=== PATIENT | female | born 1965 | race Caucasian/White ===

== ENCOUNTER 2019-09-19 10:12 | Observation (INO) ==
[2019-09-19] MEDS ORDERED: KETOROLAC TROMETHAMINE 15 MG/ML VIAL IV STA (10:54)
[2019-09-19] MEDS ORDERED: SODIUM CHLORIDE 0.9% 1000ML 1,000 ML IV ONE (10:54)
[2019-09-19] MEDS ORDERED: ONDANSETRON INJ 2 MG/ML 2 ML VIAL IV STA (10:54)
--- NOTE | 2019-09-19 11:03 | Emergency Department Note ---
Impression & Plan Acute calculous cholecystitis ED Provider Note CHIEF COMPLAINT: Right lower abdominal pain, nausea and vomiting HISTORY OF PRESENTING ILLNESS: This is a 54-year-old female who presents to the emergency department by private vehicle with complaint of right lower abdominal pain that started yesterday morning. Patient states she was having diarrhea for the past week, this stopped 2 days ago, and she has not had a bowel movement since. She states since yesterday morning she has been nauseated and has been vomiting up everything that she tries to eat or drink. She has not been able to take any medications for her symptoms. She notes that the pain has been constant, has been getting progressively worse, is in the right lower abdomen and does not radiate, and she rates the pain 6/10. She denies any fevers or chills. She denies chest pain, shortness of breath, back pain, urinary co mplaints, vaginal bleeding or discharge, or unusual rash. She denies any sick contacts or exposures concerning for COVID-19. She notes a history of tubal ligation, but denies any other abdominal surgeries. She last ate solid foods yesterday morning. She is only been doing sips the rest of the day and this morning she had some sips of Sprite around 8 AM, but vomited that back up. REVIEW OF SYSTEMS: A complete 10 point review of systems was reviewed with the patient with pertinent positives and negatives as per history of present illness. All else were negative. PAST MEDICAL HISTORY: Migraine headaches, anxiety, hypertension, history of tubal ligation SOCIAL HISTORY: Lives at home with family, she is a current everyday smoker ALLERGIES: Reviewed in chart and with the patient PHYSICAL EXAM: CONSTITUTIONAL: Pleasant and cooperative. Nontoxic-appearing and in no acute distress. Mildly dehydrated, but otherwise well appearing and well nourished. HEENT: Normocephalic, atraumatic. Pharynx normal. Tacky mucous membranes. NECK: Supple, full active range of motion without discomfort. RESPIRATORY: Clear to auscultation bilaterally with no wheezing, crackles, rhonchi or stridor. Equal expansion bilaterally. CARDIOVASCULAR: Regular rate and rhythm with no murmurs, rubs or gallops. Normal peripheral perfusion. No edema. GASTROINTESTINAL: Tender to palpation in the right upper and lower quadrant,slight guarding, but no rebound tenderness. Abdomen is otherwise nontender, soft and nondistended. Obese abdomen. No palpable masses or HSM. Bowel sounds present in all quadrants. No CVA tenderness bilaterally. MUSCULOSKELETAL: Full range of motion of all joints without discomfort. INTEGUMENTARY: No rash or other significant dermatologic conditions noted. NEUROLOGIC: Alert and oriented X 4 with normal affect. Normal strength and sensation in all 4 extremities. Normal speech. Normal gait observed. ED COURSE AND MEDICAL DECISION MAKING: CC: Patient presenting with complaint of right lower abdominal pain, nausea and vomiting DIFFERENTIAL DIAGNOSIS: Includes, but not limited to appendicitis, mesenteric adenitis, diverticulitis, gastroenteritis, infectious colitis, small bowel obstruction, cholecystitis, cholelithiasis, pancreatitis, dehydration, electrolyte abnormalities, among others. INTERPRETATION OF LABS: Leukocytosis with left shift, no anemia, normal plat elets, no significant electrolyte abnormalities, normal renal function, alk phos mildly elevated, otherwise normal liver enzymes and lipase. UA negative for infection. IMAGING: ABDOMEN AND PELVIS CT WITH IV CONTRAST CT DOSE: 1057.46 mGy.cm HISTORY: Acute right lower quadrant abdominal pain with nausea and vomiting RLQ pain, n/v TECHNIQUE: Multiaxial CT images of the abdomen and pelvis were performed following the IV administration of 94 cc of Optiray 320, A dose lowering technique was utilized adhering to the principles of ALARA. COMPARISON STUDY: CT abdomen and pelvis 04/11/2013 FINDINGS: Mild respiratory motion artifact limits evaluation of the lung bases. Linear subsegmental atelectasis/scarring of the inferior segment lingula. There is a 7 mm subpleural solid nodule of the lateral basal segment left lower lobe, image 66 of series 3 which is unchanged from 2013 and likely benign. No pneumatosis or pneumoperitoneum. The imaged inferior cardiac chambers appear unremarkable. The spleen, pancreas and adrenal glands are unremarkable. Patency of the hepatic and portal veins. Unremarkable liver. Distended stone filled gallbladder with wall thickening and pericholecystic fluid/edema. No choledocholithiasis or biliary ductal dilation identified. No drainable fluid collection. Kidneys and ureters are unremarkable. Partial urinary bladder distention with wall thickening. Unremarkable appearance of the uterus. 2.1 cm indeterminate cystic structure of the left adnexum. Moderate mixed plaque of the abdominal aorta without aneurysm. No adenopathy. Moderate sized hiatal hernia. No bowel obstruction or bowel wall thickening. Colonic diverticulosis without acute diverticulitis. Mild fecal retention. Normal appendix. Soft tissues are unremarkable. Degenerative changes of the spine, pelvis and hips. Large posterior disc osteophyte complex at T11-T12 cause at least mild central canal and moderate left lateral recess narrowing. IMPRESSION: 1. Distended stone filled gallbladder with associated wall thickening and pericholecystic fluid/edema is suggestive of acute calculus cholecystitis. Surgical consultation recommended. 2. No biliary ductal dilation identified. 3. No bowel obstruction or bowel wall thickening. Normal appendix. EKG: Shows normal sinus rhythm with a rate of 72 bpm, normal intervals, no ST or T wave abnormalities, no ectopy, no significant change when compared to previous EKG from 12/01/2018 by my interpretation. MEDICATION RECONCILIATION: I attest that I have personally reviewed the patient's current medication list. INITIAL VITAL SIGNS REVIEW: I reviewed the patient's initial vital signs and interpret them as follows: T: Afebrile; BP: Hypertensive; HR: Mildly tachycardic; RR: Within normal limits; Pulse Ox: Within normal limits on room air. Blood pressure screening: The patient was found to have an elevated blood pressure, which was felt to be situational. MDM SUMMARY: Patient was evaluated at bedside, history and physical exam performed. Patient is alert and oriented, no acute distress, resting calmly in stretcher. She is afebrile and nontoxic-appearing, but does appear to be mildly dehydrated. Abdomen is diffusely tender in the right abdomen with some guarding, but no acute abdomen. Cardiac monitoring: An order was placed for continuous cardiac monitoring. The monitor shows a rate of 91 bpm with normal sinus rhythm. Orders were placed at bedside for labs, UA, IV fluid bolus for hydration, IV Toradol for pain, IV Zofran for nausea, CT abdomen/pelvis with IV contrast to evaluate for abdominal pain. Patient discussed with Dr. Mars, who agrees with my assessment, plan, and disposition. Labs and imaging reviewed as above, labs notable for leukocytosis no other significant abnormalities. CT imaging reviewed as above, noting findings consistent with acute calculus cholecystitis. Of note, liver enzymes and lipase are normal. I spoke on the phone with Janina Bansal PA-C with general surgery, who agrees to evaluate the patient. She feels that they will most likely be able to take the patient to surgery shortly, and requested that we hold off on antibiotics for now. EKG was ordered for preop evaluation per her request. The patient will be admitted under Dr. Lara's service. Patient reassessed multiple times throughout ED stay, she has remained hemodynamically stable and afebrile, her pain is improved after the Toradol and she has not been nauseated after Zofran. She was updated on all results and plan for admission and surgery, all questions were answered to the best of my ability at this time and she verbalized understanding of the plan, to which she was agreeable. The patient was stable at time of admission. The chart was completed utilizing [employer] voice recognition software. Grammatical errors, random word insertions, pronoun errors, and incomplete sentences are an occasional consequence of this system due to software limitations, ambient noise, and hardware issues. Any formal questions or concerns about the content, text, or information contained within the body of this dictation should be directly addressed to the nurse practitioner for clarification. Past Med/Surg History Medical History (Updated 09/19/19 @ 15:04 by Kong Martínez MD) Diverticulitis (Chronic) History of stroke Hypertension Migraines Surgical History History of tubal ligation (Resolved) single, tubal Salpingectomy Social History Preferred Language: Japanese Feels Safe at Home: Yes Smoking Status: Current every day smoker Allergies Allergies Allergy/AdvReac Type Severity Reaction Status Date / Time Penicillins Allergy Unknown UNKNOWN Verified 09/19/19 11:59 Home Meds Home Medications Medication Instructions Recorded Confirmed multivitamin 1 tab PO QAM 09/14/18 09/19/19 amlodipine 5 mg PO DAILY 12/01/18 09/19/19 aspirin [Aspir-81] 81 mg PO QAM 12/01/18 09/19/19 fluticasone propionate 1 spray INTRANASAL QAM 12/01/18 09/19/19 nicotine 1 patch TRANSDERMAL DAILY PRN 12/01/18 09/19/19 nortriptyline 20 mg PO QAM 12/01/18 09/19/19 duloxetine 30 mg PO QAM 09/19/19 09/19/19 duloxetine 60 mg PO QAM 06/08/20 06/08/20 topiramate 100 mg PO QAM 09/19/19 09/19/19 Results & Data (ED) Vital Signs Vital Signs - 24 hr 09/19/19 10:25 09/19/19 11:24 09/19/19 11:25 Temperature 36.8 C Temperature Source Oral Pulse Rate 97 H 84 79 Pulse Rate [Apical] 81 Pulse Rate from SpO2 Sensor 82 Pulse Rhythm [Apical] Regular Pulse Strength [Apical] Respiratory Rate 18 18 Respiratory Effort / Characteristics Non-Labored Spontaneous Non-Labored Respiratory Depth Normal Normal Respiratory Pattern Regular Regular Blood Pressure 125/88 138/101 H Blood Pressure [Right Arm] 138/101 H Blood Pressure Mean 100 121 Blood Pressure Mean [Right Arm] 113 Blood Pressure Position Sitting Blood Pressure Position [Right Arm] Lying Pulse Oximetry 97 95 95 Oxygen Delivery Method Room Air Room Air Room Air Sepsis Recent Fever Within 48 Hours No Sepsis New/Unexplained Change in Mental Status No Sepsis Action Taken by Nursing No Action Required 09/19/19 11:27 09/19/19 11:30 09/19/19 11:31 Temperature Temperature Source Pulse Rate 75 68 72 Pulse Rate [Apical] Pulse Rate from SpO2 Sensor 75 72 72 Pulse Rhythm [Apical] Pulse Strength [Apical] Respiratory Rate 19 18 19 Respiratory Effort / Characteristics Respiratory Depth Respiratory Pattern Blood Pressure 118/79 Blood Pressure [Right Arm] Blood Pressure Mean 86 Blood Pressure Mean [Right Arm] Blood Pressure Position Blood Pressure Position [Right Arm] Pulse Oximetry 94 93 93 Oxygen Delivery Method Sepsis Recent Fever Within 48 Hours Sepsis New/Unexplained Change in Mental Status Sepsis Action Taken by Nursing 09/19/19 12:00 09/19/19 12:01 09/19/19 12:30 Temperature Temperature Source Pulse Rate 73 72 73 Pulse Rate [Apical] Pulse Rate from SpO2 Sensor 73 72 75 Pulse Rhythm [Apical] Pulse Strength [Apical] Respiratory Rate 19 18 19 Respiratory Effort / Characteristics Respiratory Depth Respiratory Pattern Blood Pressure 107/75 Blood Pressure [Right Arm] Blood Pressure Mean 88 Blood Pressure Mean [Right Arm] Blood Pressure Position Blood Pressure Position [Right Arm] Pulse Oximetry 93 94 94 Oxygen Delivery Method Sepsis Recent Fever Within 48 Hours Sepsis New/Unexplained Change in Mental Status Sepsis Action Taken by Nursing 09/19/19 12:31 09/19/19 13:00 09/19/19 13:31 Temperature Temperature Source Pulse Rate 66 75 74 Pulse Rate [Apical] Pulse Rate from SpO2 Sensor 65 75 75 Pulse Rhythm [Apical] Pulse Strength [Apical] Respiratory Rate 17 18 18 Respiratory Effort / Characteristics Respiratory Depth Respiratory Pattern Blood Pressure 113/78 114/83 140/117 H Blood Pressure [Right Arm] Blood Pressure Mean 91 99 120 Blood Pressure Mean [Right Arm] Blood Pressure Position Blood Pressure Position [Right Arm] Pulse Oximetry 95 99 93 Oxygen Delivery Method Sepsis Recent Fever Within 48 Hours Sepsis New/Unexplained Change in Mental Status Sepsis Action Taken by Nursing 09/19/19 13:32 09/19/19 14:00 09/19/19 14:30 Temperature Temperature Source Pulse Rate 79 80 77 Pulse Rate [Apical] Pulse Rate from SpO2 Sensor 80 79 75 Pulse Rhythm [Apical] Pulse Strength [Apical] Respiratory Rate 22 20 17 Respiratory Effort / Characteristics Respiratory Depth Respiratory Pattern Blood Pressure Blood Pressure [Right Arm] Blood Pressure Mean Blood Pressure Mean [Right Arm] Blood Pressure Position Blood Pressure Position [Right Arm] Pulse Oximetry 94 94 93 Oxygen Delivery Method Sepsis Recent Fever Within 48 Hours Sepsis New/Unexplained Change in Mental Status Sepsis Action Taken by Nursing 09/19/19 14:38 09/19/19 14:49 Temperature 36.6 C Temperature Source Oral Pulse Rate Pulse Rate [Apical] 78 Pulse Rate from SpO2 Sensor Pulse Rhythm [Apical] Pulse Strength [Apical] Normal Respiratory Rate 18 Respiratory Effort / Characteristics Non-Labored Spontaneous Respiratory Depth Normal Respiratory Pattern Regular Blood Pressure 123/85 Blood Pressure [Right Arm] 134/96 Blood Pressure Mean 99 Blood Pressure Mean [Right Arm] 108 Blood Pressure Position Blood Pressure Position [Right Arm] Sitting Pulse Oximetry 95 Oxygen Delivery Method Room Air Sepsis Recent Fever Within 48 Hours Sepsis New/Unexplained Change in Mental Status Sepsis Action Taken by Nursing Laboratory Data Result diagrams: 09/19/19 11:10 09/19/19 11:10 Lab Results 09/19/19 09/19/19 09/19/19 Range/Units 11:00 11:10 11:10 WBC 13.07 H (4.8-10.8) K/uL RBC 5.06 (4.2-5.4) M/uL Hgb 15.1 (12.0-16.0) g/dL Hct 44.4 (37-47) % MCV 87.7 (80-100) fL MCH 29.8 (25-34) pg MCHC 34.0 (32-36) g/dL RDW Std Deviation 39.9 (36.4-46.3) fL RDW Coeff of Jossy 12.5 (11.5-14.5) % Plt Count 237 (130-400) K/uL MPV 9.5 (7.4-10.4) fL Immature Gran % (Auto) 0.1 % Neut % (Auto) 68.3 % Lymph % (Auto) 22.8 % Sampson % (Auto) 8.1 % Eos % (Auto) 0.5 % Baso % (Auto) 0.2 % Immature Gran # (Auto) 0.01 (0.00-0.02) K/uL Neut # (Auto) 8.92 H (1.4-6.5) K/uL Lymph # (Auto) 2.98 (1.2-3.4) K/uL Sampson # (Auto) 1.06 H (0.11-0.59) K/uL Eos # (Auto) 0.07 (0-0.5) K/uL Baso # (Auto) 0.03 (0-0.2) K/uL Sodium 140 (136-145) mmol/L Potassium 3.5 (3.5-5.1) mmol/L Chloride 107 (98-107) mmol/L Carbon Dioxide 26 (21-32) mmol/L Anion Gap 7.0 (3-11) BUN 12 (7-18) mg/dl Creatinine 0.91 (0.6-1.2) mg/dl Est Cr Clr Drug Dosing 72.4 ml/min Est GFR ( Amer) 82.9 Est GFR (Non-Af Amer) 71.5 BUN/Creatinine Ratio 13.4 (10-20) Glucose 112 H (70-99) mg/dl Calcium 8.9 (8.5-10.1) mg/dl Total Bilirubin 0.5 (0.2-1) mg/dl AST 16 (15-37) U/L ALT 32 (12-78) U/L Alkaline Phosphatase 129 H (45-117) U/L Total Protein 7.7 (6.4-8.2) gm/dl Albumin 3.8 (3.4-5.0) gm/dl Globulin 3.9 (2.5-4.0) gm/dl Albumin/Globulin Ratio 1.0 (0.9-2) Lipase 179 (73-393) U/L Urine Color Yellow Urine Appearance Clear (Clear) Urine pH 5.0 (4.5-7.5) Ur Specific [place] 1.019 (1.000-1.030) Urine Protein Negative (Negative) Urine Glucose (UA) Negative (Negative) Urine Ketones Negative (Negative) Urine Blood Trace H (Negative) Urine Nitrite Negative (Negative) Urine Bilirubin Negative (Negative) Urine Urobilinogen Negative (Negative) Ur Leukocyte Esterase Negative (Negative) Urine WBC (Auto) 1-5 (0-5) /hpf Urine RBC (Auto) 0-4 (0-4) /hpf U Hyaline Cast (Auto) 1-5 (0-5) /lpf U Epithel Cells (Auto) >30 H (0-5) /lpf Urine Bacteria (Auto) Negative (Negative) Administered Medications Clindamycin Phosphate 900 mg/ (Dextrose) 56 mls @ 112 mls/hr IV NOW ONE Stop: 09/19/19 15:44 Last Admin: 09/19/19 15:17 Dose: 112 mls/hr Documented by: [id number] Ioversol (Optiray 320 100ml) 94 ml IV ONCE PRN PRN Reason: Interaction Checking Stop: 09/23/19 12:52 Last Admin: 09/19/19 12:54 Dose: 94 ml Documented by: [id number] Discontinued Medications Sodium Chloride (Nss 1000ml) 1,000 mls @ 999 mls/hr IV .Q1H1M ONE Stop: 09/19/19 11:54 Last Infusion: 09/19/19 12:33 Dose: 0 mls/hr Documented by: [id number] Admin: 09/19/19 11:19 Dose: 999 mls/hr Documented by: [id number] Ketorolac Tromethamine (Toradol) 15 mg IV NOW STA Stop: 09/19/19 10:55 Last Admin: 09/19/19 11:20 Dose: 15 mg Documented by: [id number] Ondansetron HCl (Zofran) 4 mg IV NOW STA Stop: 09/19/19 10:55 Last Admin: 09/19/19 11:19 Dose: 4 mg Documented by: [id number] Discharge Plan Visit Data *Final* Discharge Date/Time: 09/19/19 14:42 Chief Complaint: Abdominal Pain Stated Complaint: PAIN R LOWER SIDE, ED Provider: Maverick Mars ED Midlevel Provider: Wandy Velazquez Discharge Problem: Acute calculous cholecystitis Patient Disposition: Admitted As Inpatient Discharge Instructions Interventions: ED Discharge Assessment Last Done: 09/19/19 14:42
[2019-09-19 11:23] LABS: Basophils # (auto) 0.03 K/uL (0-0.2); Basophils % (auto) 0.2 %; Eosinophils # (auto) 0.07 K/uL (0-0.5); Eosinophils % (auto) 0.5 %; Hematocrit (blood only) 44.4 % (37-47); Hemoglobin 15.1 g/dL (12.0-16.0); Immature Granulocytes # (auto) 0.01 K/uL (0.00-0.02); Immature Granulocytes % (auto) 0.1 %; Lymphocytes # (auto) 2.98 K/uL (1.2-3.4); Lymphocytes % (auto) 22.8 %; Mean Corpuscular Hemoglobin 29.8 pg (25-34); Mean Corpuscular Volume 87.7 fL (80-100); Mean Platelet Volume 9.5 fL (7.4-10.4); Monocytes # (auto) 1.06 K/uL (0.11-0.59); Monocytes % (auto) 8.1 %; Neutrophils # (auto) 8.92 K/uL (1.4-6.5); Neutrophils % (auto) 68.3 %; Platelet Count 237 K/uL (130-400); RDW Coefficient of Variation 12.5 % (11.5-14.5); RDW Standard Deviation 39.9 fL (36.4-46.3); Red Blood Count 5.06 M/uL (4.2-5.4); White Blood Count 13.07 K/uL (4.8-10.8)
[2019-09-19 11:27] LABS: Appearance Urine Clear (Clear); Bacteria Urine Automated Negative (Negative); Bilirubin Urine Negative (Negative); Blood Urine Trace (Negative); Color Urine Yellow; Epithelial Cell Urine Auto >30 /lpf (0-5); Glucose Urine UA Negative (Negative); Ketones Urine Negative (Negative); Leukocyte Esterase Urine Negative (Negative); Nitrite Urine Negative (Negative); Protein Urine Negative (Negative); RBC Urine Automated 0-4 /hpf (0-4); Specific Gravity Urine 1.019 (1.000-1.030); Urobilinogen Urine Negative (Negative)
[2019-09-19 11:46] LABS: Albumin Level 3.8 gm/dl (3.4-5.0); BUN Creatinine Ratio 13.4 (10-20); Calcium 8.9 mg/dl (8.5-10.1); Creatinine Clr Calc Pharmacy 72.4 ml/min; Est GFR (African American) 82.9; Est GFR (Non-African American) 71.5; Potassium 3.5 mmol/L (3.5-5.1)
[2019-09-19 11:48] LABS: Bilirubin,Total 0.5 mg/dl (0.2-1); Globulin 3.9 gm/dl (2.5-4.0); Total Protein 7.7 gm/dl (6.4-8.2)
[2019-09-19] MEDS ORDERED: IOVERSOL 100ml IV PRN (12:53)
--- NOTE | 2019-09-19 13:03 | CT Scan Report ---
ABDOMEN AND PELVIS CT WITH IV CONTRAST CT DOSE: 1057.46 mGy.cm HISTORY: Acute right lower quadrant abdominal pain with nausea and vomiting RLQ pain, n/v TECHNIQUE: Multiaxial CT images of the abdomen and pelvis were performed following the IV administrat ion of 94 cc of Optiray 320, A dose lowering technique was utilized adhering to the principles of AL PETEY. COMPARISON STUDY: CT abdomen and pelvis 04/11/2013 FINDINGS: Mild respiratory motion artifact limits evaluation of the lung bases. Linear subsegmental atelectasis /scarring of the inferior segment lingula. There is a 7 mm subpleural solid nodule of the lateral bas al segment left lower lobe, image 66 of series 3 which is unchanged from 2013 and likely benign. No p neumatosis or pneumoperitoneum. The imaged inferior cardiac chambers appear unremarkable. The spleen, pancreas and adrenal glands are unremarkable. Patency of the hepatic and portal veins. Unremarkable liver. Distended stone filled gallbladder with wall thickening and pericholecystic fluid/edema. No ch oledocholithiasis or biliary ductal dilation identified. No drainable fluid collection. Kidneys and ureters are unremarkable. Partial urinary bladder distention with wall thickening. Unrema rkable appearance of the uterus. 2.1 cm indeterminate cystic structure of the left adnexum. Moderate mixed plaque of the abdominal aorta without aneurysm. No adenopathy. Moderate sized hiatal hernia. No bowel obstruction or bowel wall thickening. Colonic diverticulosis w ithout acute diverticulitis. Mild fecal retention. Normal appendix. Soft tissues are unremarkable. De generative changes of the spine, pelvis and hips. Large posterior disc osteophyte complex at T11-T12 cause at least mild central canal and moderate left lateral recess narrowing. IMPRESSION: 1. Distended stone filled gallbladder with associated wall thickening and pericholecystic fluid/edema is suggestive of acute calculus cholecystitis. Surgical consultation recommended. 2. No biliary ductal dilation identified. 3. No bowel obstruction or bowel wall thickening. Normal appendix. ACT 112: Negative or not required by law. The above report was generated using voice recognition software. It may contain grammatical, syntax o r spelling errors. Electronically signed by: Morgan Leong M.D. 09/19/2019 1:02 PM
--- NOTE | 2019-09-19 13:57 | History & Physical Report ---
Date of Service September 19, 2019 Assessment & Plan (1) Cholecystitis, acute with cholelithiasis: This patient has right upper quadrant pain and tenderness with a history of nausea and vomiting. Her white blood cell count is mildly elevated and CAT scan shows evidence of acute cholecystitis. I recommended laparoscopic cholecystectomy. I explained the possible need to convert to an open procedure. I explained some of the complications that can occur with these procedures. The patient wishes to undergo surgery. She has signed a consent form. History of Present Illness Chief Complaint: Right upper quadrant pain with nausea and vomiting Primary Care Provider: Natalia Ewing This is a 54-year-old female who presented to the emergency room with a complaint of right upper quadrant pain that began yesterday at 6 AM. The discomfort is localized to the right upper quadrant and occasionally radiates through to her back. She has never had pain like this in the past. There is no generalized abdominal pain. The pain is exacerbated by motion and she could not find anything that she could do to relieve it. It was associated with nausea. She is had multiple episodes of vomiting without hematemesis. Over the last week she has also had some diarrhea. There is no melena or hematochezia. That is unusual for her. She underwent a CT scan of the abdomen and pelvis that demonstrated cholelithiasis with thickening of the gallbladder wall and pericholecystic fluid. There are no urinary symptoms Allergies Allergy/AdvReac Type Severity Reaction Status Date / Time Penicillins Allergy Unknown UNKNOWN Verified 09/19/19 11:59 Home Medications Home Medications Medication Instructions Recorded Confirmed Type multivitamin 1 tab PO QAM 09/14/18 09/19/19 History amlodipine 5 mg PO DAILY 12/01/18 09/19/19 History aspirin [Aspir-81] 81 mg PO QAM 12/01/18 09/19/19 History fluticasone propionate 1 spray INTRANASAL QAM 12/01/18 09/19/19 History nicotine 1 patch TRANSDERMAL DAILY PRN 12/01/18 09/19/19 History nortriptyline 20 mg PO QAM 12/01/18 09/19/19 History duloxetine 30 mg PO QAM 09/19/19 09/19/19 History duloxetine 60 mg PO QAM 09/19/19 09/19/19 History topiramate 100 mg PO QAM 09/19/19 09/19/19 History Past Med/Surg History Medical History (Updated 09/19/19 @ 13:56 by Pawan Lara MD) Diverticulitis (Chronic) History of stroke Surgical History (Updated 09/19/19 @ 13:54 by Pawan Lara MD) History of tubal ligation (Resolved) single, tubal Salpingectomy Social History Preferred Language: Luxembour[place] Feels Safe at Home: Yes Smoking Status: Current every day smoker Review of Systems Constitutional: as per Subjective / HPI Respiratory: + cough Cardiovascular: no chest pain Gastrointestinal: as per Subjective / HPI Genitourinary: as per Subjective / HPI Physical Exam Constitutional: no acute distress Respiratory: normal respiratory effort, lungs clear to auscultation Cardiovascular: Rate/Rhythm: regular rate and regular rhythm Gastrointestinal (Abdomen): Inspection/Auscultation: abdomen normal to inspection and normal bowel sounds; abdomen not distended Percussion/Palpation: + abdomen tender (Right upper quadrant to moderate palpation) and abdomen soft; no abdominal mass Skin: no rashes, warm and dry Lymphatic: no cervical lymphadenopathy Results & Data Results & Data ([facility]) Vital Signs (Past 12 Hours) Vital Signs Temp Pulse Pulse Resp BP BP Pulse Ox 09/19/19 13:31 74 18 140/117 H 93 09/19/19 13:00 75 18 114/83 99 09/19/19 12:31 66 17 113/78 95 09/19/19 12:30 73 19 94 09/19/19 12:01 72 18 107/75 94 09/19/19 12:00 73 19 93 09/19/19 11:31 72 19 118/79 93 09/19/19 11:30 68 18 93 09/19/19 11:27 75 19 94 09/19/19 11:25 79 95 09/19/19 11:24 84 81 18 138/101 H 138/101 H 95 09/19/19 10:25 36.8 C 97 H 18 125/88 97 Laboratory Results 09/19/19 09/19/19 09/19/19 Range/Units 11:10 11:10 11:00 WBC 13.07 H (4.8-10.8) K/uL RBC 5.06 (4.2-5.4) M/uL Hgb 15.1 (12.0-16.0) g/dL Hct 44.4 (37-47) % MCV 87.7 (80-100) fL MCH 29.8 (25-34) pg MCHC 34.0 (32-36) g/dL RDW Std Deviation 39.9 (36.4-46.3) fL RDW Coeff of Jossy 12.5 (11.5-14.5) % Plt Count 237 (130-400) K/uL MPV 9.5 (7.4-10.4) fL Immature Gran % (Auto) 0.1 % Neut % (Auto) 68.3 % Lymph % (Auto) 22.8 % [place] % (Auto) 8.1 % Eos % (Auto) 0.5 % Baso % (Auto) 0.2 % Immature Gran # (Auto) 0.01 (0.00-0.02) K/uL Neut # (Auto) 8.92 H (1.4-6.5) K/uL Lymph # (Auto) 2.98 (1.2-3.4) K/uL [place] # (Auto) 1.06 H (0.11-0.59) K/uL Eos # (Auto) 0.07 (0-0.5) K/uL Baso # (Auto) 0.03 (0-0.2) K/uL Sodium 140 (136-145) mmol/L Potassium 3.5 (3.5-5.1) mmol/L Chloride 107 (98-107) mmol/L Carbon Dioxide 26 (21-32) mmol/L Anion Gap 7.0 (3-11) BUN 12 (7-18) mg/dl Creatinine 0.91 (0.6-1.2) mg/dl Est Cr Clr Drug Dosing 72.4 ml/min Est GFR ( Amer) 82.9 Est GFR (Non-Af Amer) 71.5 BUN/Creatinine Ratio 13.4 (10-20) Glucose 112 H (70-99) mg/dl Calcium 8.9 (8.5-10.1) mg/dl Total Bilirubin 0.5 (0.2-1) mg/dl AST 16 (15-37) U/L ALT 32 (12-78) U/L Alkaline Phosphatase 129 H (45-117) U/L Total Protein 7.7 (6.4-8.2) gm/dl Albumin 3.8 (3.4-5.0) gm/dl Globulin 3.9 (2.5-4.0) gm/dl Albumin/Globulin Ratio 1.0 (0.9-2) Lipase 179 (73-393) U/L Urine Color Yellow Urine Appearance Clear (Clear) Urine pH 5.0 (4.5-7.5) Ur Specific [place] 1.019 (1.000-1.030) Urine Protein Negative (Negative) Urine Glucose (UA) Negative (Negative) Urine Ketones Negative (Negative) Urine Blood Trace H (Negative) Urine Nitrite Negative (Negative) Urine Bilirubin Negative (Negative) Urine Urobilinogen Negative (Negative) Ur Leukocyte Esterase Negative (Negative) Urine WBC (Auto) 1-5 (0-5) /hpf Urine RBC (Auto) 0-4 (0-4) /hpf U Hyaline Cast (Auto) 1-5 (0-5) /lpf U Epithel Cells (Auto) >30 H (0-5) /lpf Urine Bacteria (Auto) Negative (Negative) Diagnostic Findings ABDOMEN AND PELVIS CT WITH IV CONTRAST CT DOSE: 1057.46 mGy.cm HISTORY: Acute right lower quadrant abdominal pain with nausea and vomiting RLQ pain, n/v TECHNIQUE: Multiaxial CT images of the abdomen and pelvis were performed following the IV administration of 94 cc of Optiray 320, A dose lowering technique was utilized adhering to the principles of ALARA. COMPARISON STUDY: CT abdomen and pelvis 04/11/2013 FINDINGS: Mild respiratory motion artifact limits evaluation of the lung bases. Linear subsegmental atelectasis/scarring of the inferior segment lingula. There is a 7 mm subpleural solid nodule of the lateral basal segment left lower lobe, image 66 of series 3 which is unchanged from 2013 and likely benign. No pneumatosis or pneumoperitoneum. The imaged inferior cardiac chambers appear unremarkable. The spleen, pancreas and adrenal glands are unremarkable. Patency of the hepatic and portal veins. Unremarkable liver. Distended stone filled gallbladder with wall thickening and pericholecystic fluid/edema. No choledocholithiasis or biliary ductal dilation identified. No drainable fluid collection. Kidneys and ureters are unremarkable. Partial urinary bladder distention with wall thickening. Unremarkable appearance of the uterus. 2.1 cm indeterminate cystic structure of the left adnexum. Moderate mixed plaque of the abdominal aorta without aneurysm. No adenopathy. Moderate sized hiatal hernia. No bowel obstruction or bowel wall thickening. Colonic diverticulosis without acute diverticulitis. Mild fecal retention. Normal appendix. Soft tissues are unremarkable. Degenerative changes of the s pine, pelvis and hips. Large posterior disc osteophyte complex at T11-T12 cause at least mild central canal and moderate left lateral recess narrowing. IMPRESSION: 1. Distended stone filled gallbladder with associated wall thickening and pericholecystic fluid/edema is suggestive of acute calculus cholecystitis. Surgical consultation recommended. 2. No biliary ductal dilation identified. 3. No bowel obstruction or bowel wall thickening. Normal appendix.
[2019-09-19] MEDS ORDERED: BUPIVACAINE 0.5 % 5 MG/1 ML MPF 30ML VIAL ONE (14:37)
[2019-09-19] MEDS ORDERED: HEPARIN (PORCINE) 1000 UNIT/ML 10 ML (CATH LAB USE ONLY) ONE (14:37)
[2019-09-19] MEDS ORDERED: CEFAZOLIN 250 MG/ML 1 GM VIAL ONE (14:38)
[2019-09-19] MEDS ORDERED: CONRAY 60% 50 ML VIAL ONE (14:38)
[2019-09-19] MEDS ORDERED: PROPOFOL IV EMULSION 10 MG/ML 20 ML VIAL IV ONE (14:50)
[2019-09-19] MEDS ORDERED: DEXAMETHASONE SOD INJ 4 MG/ML VIAL ONE (14:50)
[2019-09-19] MEDS ORDERED: SUCCINYLCHOLINE CHLORIDE 20 MG/ML 10 ML VIAL IV ONE (14:50)
[2019-09-19] MEDS ORDERED: LIDOCAINE HCL 2% 2 ML VIAL/AMP(20MG/ML) INFIL ONE ×3 (14:50→16:57)
[2019-09-19] MEDS ORDERED: MIDAZOLAM HCL 1 MG/ML 2ML VIAL ONE (14:50)
[2019-09-19] MEDS ORDERED: fentaNYL citrate 100 MCG/2 ML VIAL ONE (14:50)
[2019-09-19] MEDS ORDERED: ROCURONIUM BROMIDE 10 MG/ML 5 ML VIAL ONE (14:50)
[2019-09-19] MEDS ORDERED: ONDANSETRON INJ 2 MG/ML 2 ML VIAL ONE (14:50)
--- NOTE | 2019-09-19 15:03 | Anesthesiology Consultation ---
Date of Service September 19, 2019 Assessment & Plan (1) Encounter for pre-operative examination: Chart Review Chart Review: Acceptable Risk for Surgery and Patient NOT seen in Pre Admission Testing Consults Requested none History Surgery Operation Date: 09/19/19 09:10 Proposed Procedures p Laparoscopic Cholecystectomy - Pawan Lara MD Height/Weight Height: 5 ft 2 in Weight: 87.1 kg Allergies Allergy/AdvReac Type Severity Reaction Status Date / Time Penicillins Allergy Unknown UNKNOWN Verified 09/19/19 11:59 Medications Home Medications Medication Instructions Recorded Confirmed Last Taken multivitamin 1 tab PO QAM 09/14/18 09/19/19 09/17/19 amlodipine 5 mg PO DAILY 12/01/18 09/19/19 09/17/19 aspirin [Aspir-81] 81 mg PO QAM 12/01/18 09/19/19 09/17/19 fluticasone propionate 1 spray INTRANASAL QAM 12/01/18 09/19/19 09/17/19 nicotine 1 patch TRANSDERMAL DAILY PRN 12/01/18 09/19/19 Unknown nortriptyline 20 mg PO QAM 12/01/18 09/19/19 09/17/19 duloxetine 30 mg PO QAM 09/19/19 09/19/19 09/17/19 duloxetine 60 mg PO QAM 09/19/19 09/19/19 09/17/19 topiramate 100 mg PO QAM 09/19/19 09/19/19 09/17/19 Active Medications Generic Name Dose Route Start Last Admin Trade Name Freq PRN Reason Stop Dose Admin Ioversol 94 ml 09/19/19 12:53 09/19/19 12:54 Optiray 320 100ml IV 09/23/19 12:52 94 ml ONCE PRN Administration Interaction Checking NPO Date Last Intake of Fluids: 09/19/19 Time Last Intake of Fluids: 08:00 Last Intake of Fluids Comment: "few sips" seven up Date Last Intake of Solids: 09/18/19 Past Medical History Medical History (Updated 09/19/19 @ 15:04 by Kong Martínez MD) Diverticulitis (Chronic) History of stroke Hypertension Migraines Past Surgical History Surgical History History of tubal ligation (Resolved) single, tubal Salpingectomy Social History Smoking Status: Current every day smoker Physical Exam Vital Signs Last Vital Signs Temp 36.6 C 09/19/19 14:49 Pulse 78 09/19/19 14:49 Resp 18 09/19/19 14:49 BP 134/96 09/19/19 14:49 Pulse Ox 95 09/19/19 14:49 Testing Laboratory Results 09/19/19 11:10 09/19/19 11:10 Urine Color Yellow 09/19/19 11:00 Urine Appearance Clear (Clear) 09/19/19 11:00 Urine pH 5.0 (4.5-7.5) 09/19/19 11:00 Ur Specific [place] 1.019 (1.000-1.030) 09/19/19 11:00 Urine Protein Negative (Negative) 09/19/19 11:00 Urine Glucose (UA) Negative (Negative) 09/19/19 11:00 Urine Ketones Negative (Negative) 09/19/19 11:00 Urine Nitrite Negative (Negative) 09/19/19 11:00 Ur Leukocyte Esterase Negative (Negative) 09/19/19 11:00 Urine WBC (Auto) 1-5 /hpf (0-5) 09/19/19 11:00 Urine RBC (Auto) 0-4 /hpf (0-4) 09/19/19 11:00 U Hyaline Cast (Auto) 1-5 /lpf (0-5) 09/19/19 11:00 U Epithel Cells (Auto) >30 /lpf (0-5) H 09/19/19 11:00 Urine Bacteria (Auto) Negative (Negative) 09/19/19 11:00 Electrocardiogram Date: 09/19/19 Findings: + NSR @ (72) Normal sinus rhythm Low voltage QRS Borderline ECG When compared with ECG of 01-DEC-2018 21:37, No significant change was found
[2019-09-19] MEDS ORDERED: ONDANSETRON INJ 2 MG/ML 2 ML VIAL IV PRN ×2 (15:11→19:16)
[2019-09-19] MEDS ORDERED: ePHEDrine sulfate 50 MG/ML AMP IV PRN (15:11)
[2019-09-19] MEDS ORDERED: ATROPINE SULFATE 0.1 MG/ML 10ML SYR IV PRN (15:11)
[2019-09-19] MEDS ORDERED: HYDROmorphone INJ 2 MG/ML SYR/VIAL IV PRN (15:11)
--- NOTE | 2019-09-19 15:11 | Anesthesiology Consultation ---
Date of Service September 19, 2019 Assessment & Plan ASA ASA3 Proposed Anesthesia Anesthesia Type: General Risk / Benefits Reviewed With: PT / POA / Parent / Guardian, Accepts Plan and Informed Consent Obtained History Surgery Operation Date: 09/19/19 09:10 Proposed Procedures p Laparoscopic Cholecystectomy - Pawan Lara MD Height/Weight Height: 5 ft 2 in Weight: 87.1 kg Allergies Allergy/AdvReac Type Severity Reaction Status Date / Time Penicillins Allergy Unknown UNKNOWN Verified 09/19/19 11:59 Medications Home Medications Medication Instructions Recorded Confirmed Last Taken multivitamin 1 tab PO QAM 09/14/18 09/19/19 09/17/19 amlodipine 5 mg PO DAILY 12/01/18 09/19/19 09/17/19 aspirin [Aspir-81] 81 mg PO QAM 12/01/18 09/19/19 09/17/19 fluticasone propionate 1 spray INTRANASAL QAM 12/01/18 09/19/19 09/17/19 nicotine 1 patch TRANSDERMAL DAILY PRN 12/01/18 09/19/19 Unknown nortriptyline 20 mg PO QAM 12/01/18 09/19/19 09/17/19 duloxetine 30 mg PO QAM 09/19/19 09/19/19 09/17/19 duloxetine 60 mg PO QAM 09/19/19 09/19/19 09/17/19 topiramate 100 mg PO QAM 09/19/19 09/19/19 09/17/19 Active Medications Generic Name Dose Route Start Last Admin Trade Name Freq PRN Reason Stop Dose Admin Ioversol 94 ml 09/19/19 12:53 09/19/19 12:54 Optiray 320 100ml IV 09/23/19 12:52 94 ml ONCE PRN Administration Interaction Checking NPO Date Last Intake of Fluids: 09/19/19 Time Last Intake of Fluids: 08:00 Last Intake of Fluids Comment: "few sips" seven up Date Last Intake of Solids: 09/18/19 Time Last Intake of Solids: 00:00 Past Medical History Medical History (Updated 09/19/19 @ 15:04 by Kong Martínez MD) Diverticulitis (Chronic) History of stroke Hypertension Migraines Exercise / Class Metabolic Activity II 4-5 Yardwork/Stairs/Walk up hill Past Surgical History Surgical History History of tubal ligation (Resolved) single, tubal Salpingectomy Past Anesthesia History No Hx of Anesthesia Complications and No Family Hx of Anesthesia Complications History of PONV No Hx of PONV and No Hx of Motion Sickness Social History Smoking Status: Current every day smoker Review of Systems denies fever/cough/ colds/ chest pain/ SOB/ MILLER Constitutional: no fever and no chills Respiratory: no cough and no dyspnea denies MILLER Cardiovascular: no chest pain and no dyspnea on exertion Physical Exam Vital Signs Last Vital Signs Temp 36.6 C 09/19/19 14:49 Pulse 78 09/19/19 14:49 Resp 18 09/19/19 14:49 BP 134/96 09/19/19 14:49 Pulse Ox 95 09/19/19 14:49 ENMT Mouth: no TMJ abnormality and no dentition abnormality Thyromental Distance: > or= 3.5 Finger Breadths Mallampati Class: I Neck neck extension not limited Respiratory normal respiratory effort; no respiratory distress Auscultation: lungs clear to auscultation bilaterally Cardiovascular Rate/Rhythm: regular rate and regular rhythm Neurologic moves all extremities Psychiatric Orientation: alert and oriented x 3 Testing Laboratory Results 09/19/19 11:10 09/19/19 11:10 Urine Color Yellow 09/19/19 11:00 Urine Appearance Clear (Clear) 09/19/19 11:00 Urine pH 5.0 (4.5-7.5) 09/19/19 11:00 Ur Specific [place] 1.019 (1.000-1.030) 09/19/19 11:00 Urine Protein Negative (Negative) 09/19/19 11:00 Urine Glucose (UA) Negative (Negative) 09/19/19 11:00 Urine Ketones Negative (Negative) 09/19/19 11:00 Urine Nitrite Negative (Negative) 09/19/19 11:00 Ur Leukocyte Esterase Negative (Negative) 09/19/19 11:00 Urine WBC (Auto) 1-5 /hpf (0-5) 09/19/19 11:00 Urine RBC (Auto) 0-4 /hpf (0-4) 09/19/19 11:00 U Hyaline Cast (Auto) 1-5 /lpf (0-5) 09/19/19 11:00 U Epithel Cells (Auto) >30 /lpf (0-5) H 09/19/19 11:00 Urine Bacteria (Auto) Negative (Negative) 09/19/19 11:00
[2019-09-19] MEDS ORDERED: CLINDAMYCIN 900 MG in DEXTROSE 5% 50 ML IV ONE (15:15)
[2019-09-19] MEDS ORDERED: HydrALAZINE HCL 20 MG/ML VIAL ONE (16:57)
--- NOTE | 2019-09-19 17:11 | Post Operative Brief Note ---
Immediate Post Op Note v1 Date of Surgery September 19, 2019 Pre & Post Diagnosis Operation Date: 09/19/19 09:10 Pre-Op Diagnosis: Cholecystitis, acute with cholelithiasis. Post-Op Diagnosis: Cholecystitis, acute with cholelithiasis. I identified the patient and participated in the time-out.: Yes Procedure Operation Date: 09/19/19 09:10 Actual Procedures p Laparoscopic Cholecystectomy - Pawan Lara MD Surgeon Pawan Lara MD Project Structural Engineer Janina Abrams PA-C Estimated Blood Loss 10 Findings Consistent with Post-Op Diagnosis
[2019-09-19] MEDS: fentaNYL citrate 100 MCG/2 ML VIAL IV PRN ×2 (17:59→18:04)
[2019-09-19] MEDS ORDERED: ESMOLOL HCL INJ 10 MG/ML 10ML VIAL IV ONE (18:01)
--- NOTE | 2019-09-19 18:24 | Anesthesiology Progress Note ---
Date of Service September 19, 2019 Anesthesia Post Procedure Vital Signs Vital Signs: Temp Pulse Pulse Resp BP BP Pulse Ox 09/19/19 18:20 63 15 115/66 94 09/19/19 18:10 74 14 124/78 95 09/19/19 18:00 54 L 20 134/69 96 09/19/19 17:54 97.5 F L 60 23 118/76 96 09/19/19 14:49 97.9 F 78 18 134/96 95 09/19/19 14:38 123/85 09/19/19 14:30 77 17 93 09/19/19 14:00 80 20 94 09/19/19 13:32 79 22 94 09/19/19 13:31 74 18 140/117 H 93 09/19/19 13:00 75 18 114/83 99 09/19/19 12:31 66 17 113/78 95 09/19/19 12:30 73 19 94 09/19/19 12:01 72 18 107/75 94 09/19/19 12:00 73 19 93 09/19/19 11:31 72 19 118/79 93 09/19/19 11:30 68 18 93 09/19/19 11:27 75 19 94 09/19/19 11:25 79 95 09/19/19 11:24 84 81 18 138/101 H 138/101 H 95 09/19/19 10:25 98.2 F 97 H 18 125/88 97 Pain Intensity Right Abdomen: Pain Intensity: 3 Abdomen: Pain Intensity: 3 Transfer of Care Handoff Completed per policy Notes Mental Status: alert / awake / arousable and participated in evaluation Patient Amnestic to Procedure: Yes Nausea / Vomiting: adequately controlled Pain: adequately controlled Airway Patency, RR, SpO2: stable & adequate BP & HR: stable & adequate Hydration State: stable & adequate Anesthetic Complications: no major complications apparent and Pt Satisfied with anesthetic care
--- NOTE | 2019-09-19 18:38 | Operative Report (OR) ---
DATE OF OPERATION: 09/19/2019 PREOPERATIVE DIAGNOSIS: Acute calculus cholecystitis. POSTOPERATIVE DIAGNOSIS: Acute calculus cholecystitis. PROCEDURE: Laparoscopic cholecystectomy. SURGEON: Pawan Lara MD. IMAGE PROCESSING ENGINEER: Janina Abrams PA-C. FINDINGS: The gallbladder was dilated. The wall was thickened. There were multiple tiny yellow stones within the lumen. The intraluminal bile was thick. There were stones lodged in the neck of the gallbladder. The cystic duct was not dilated. The liver was of normal size. There was some mild nodularity to it. The visible bowel appeared normal. TECHNIQUE: The patient was given a general anesthetic and the area was prepped and draped in the usual sterile fashion. The skin inferior to the umbilicus was anesthetized with 0.5% Marcaine. Skin incision was made and was carried down through the subcutaneous tissue to the fascia which was grasped with 2 Radha clamps and incised between. The peritoneum was identified, incised and the introducer was placed bluntly. The abdomen was then insufflated to a pressure of 15 mmHg with carbon dioxide. Sites for the upper midline, midclavicular and anterior axillary introducers were chosen and the skin in layers were anesthetized with 0.5% Marcaine. Skin incisions were made and the introducers were placed under direct vision. Traction could not be placed on the gallbladder, so could not be grasped. I then placed the suction needle; however, the bile was too thick to be able to be removed through that. I then compressed the gallbladder and expressed some of the bile and then was able to grasp the gallbladder. At one point, the grasper did create a hole and there was some loss of bile and stones. Traction was placed on the gallbladder and there were multiple adhesions of the omentum to the gallbladder. These were taken down using blunt and cautery dissection where appropriate. There were also adhesions to the undersurface of the liver that were taken down using blunt cautery dissection, making sure not to tear the capsule. Once I got down to the infundibulum of the gallbladder, I dissected adhesions away from the infundibulum and then away from the neck and then opened the peritoneum and peeled it towards the common bile duct. I then divided the attachments of the infundibulum away from the liver on the lateral side, which allowed for additional mobility. The inferior traction was placed and the triangle of Calot was opened. The cystic artery was readily identified within the triangle of Calot as the gallbladder was dissected away from the liver on that medial side. I then connected the lateral and medial dissection, which allowed me to establish a plane behind the cystic duct and the cystic artery. A plane was then established between those 2 structures. There was some connective tissue between them that was taken down using cautery providing a good window. Two clips were placed on the proximal cystic duct, one near the gallbladder and it was divided. Two clips were placed on the proximal cystic artery, one near the gallbladder and it was divided. The gallbladder was then peeled off the liver bed using electrocautery. Towards the fundus of the gallbladder, there was not a good plane and it required some meticulous millimeter by millimeter dissection in order to maintain that plane. I eventually was able to divide all of the attachments. I placed the gallbladder into an Endobag and brought out through the upper midline incision where I had to open the gallbladder further, remove some stones in order to extract the gallbladder, but that was accomplished within the bag. That introducer was replaced. Subdiaphragmatic and subhepatic spaces were irrigated with a copious amount of saline solution in aliquots to identify any spilled stones. This was done meticulously and carefully to remove any stones that we had spilled. Any stones that were in the subdiaphragmatic space and subhepatic spaces were removed. The areas of dissection were inspected for bleeding and none was seen. The gallbladder bed of the liver was inspected and there was no bleeding. The previously placed clips were intact. The gas was allowed to escape and the introducers were removed. The fascia of the umbilical and upper midline introducer sites was closed with interrupted 0 Vicryl. The skin of all the incisions was closed with 4-0 Monocryl in either an interrupted or running subcuticular fashion. Further local was used to anesthetize the area additionally. The skin was cleansed, dried, benzoin placed, Steri-Strips applied. The estimated blood loss was 10 mL. Sponge, needle and instrument counts were correct prior to closure. The patient tolerated the surgical procedure without complication and was transferred to Recovery. I attest to the content of the Intraoperative Record and any orders documented therein. Any exception s are noted below.
[2019-09-19] MEDS ORDERED: MoRPHine SULFATE 4 MG/ML 1 ML CARP\\VIAL IV PRN (19:16)
[2019-09-19] MEDS: OXYCODONE/ACETAMINOPHEN 5mg/325mg TAB PO PRN (20:54)
[2019-09-19] MEDS ORDERED: NORTRIPTYLINE HCL 10 MG CAP PO SCH (21:00)
[2019-09-20] MEDS: OXYCODONE/ACETAMINOPHEN 5mg/325mg TAB PO PRN ×2 (01:43→09:19)
[2019-09-20] MEDS ORDERED: CLINDAMYCIN PHOS 900 MG/6 ML VIAL IV SCH (06:00)
--- NOTE | 2019-09-20 06:08 | Electrocardiogram Report ---
Test Reason : Blood Pressure : / mmHG Vent. Rate : 072 BPM Atrial Rate : 072 BPM P-R Int : 112 ms QRS Dur : 080 ms QT Int : 398 ms P-R-T Axes : 057 067 038 degrees QTc Int : 435 ms Normal sinus rhythm Low voltage QRS Borderline ECG When compared with ECG of 01-DEC-2018 21:37, No significant change was found Confirmed by Naresh Dorsey ([id number]) on 09/20/2019 6:07:50 AM Referred By: REFERRED SELF Confirmed By:Naresh Dorsey
[2019-09-20] MEDS ORDERED: AMLODIPINE BESYLATE 5 MG TAB PO SCH (09:00)
--- NOTE | 2019-09-20 09:24 | Surgery Progress Note ---
Date of Service September 20, 2019 Assessment & Plan (1) Cholecystitis, acute with cholelithiasis: POD # 1 s/p laparoscopic cholecystectomy -vitals stable - postop pain minimal, controlled - no n/v Plan: Discharge home Discharge instructions reviewed replace steri strips prior to discharge Rx for Percocet prn pain f/u surgical office in [address] Lara has seen and examined pt, agrees with above. Subjective feeling good pain minimal controlled, preop pain resolved no n/v tolerated regular diet ready to go home Physical Exam Constitutional: WD/WN, vitals as above no acute distress Gastrointestinal (Abdomen): Inspection/Auscultation: abdomen normal to inspection; abdomen not distended Percussion/Palpation: + abdomen tender (at incisions, appropriate postop) and abdomen soft; no guarding and abdomen not rigid Skin: no rashes, warm and dry + incision (Covered with dressings, removed, steri strips still present) Blood on steri strips at umbilical incision. Ecchymosis of subxiphoid incision Psychiatric: Orientation: alert and oriented x 3 Results & Data Vital Signs (Past 12 Hours) Vital Signs Temp Pulse Pulse Resp BP BP Pulse Ox 09/20/19 06:59 36.5 C 64 17 133/77 93 09/20/19 02:55 36.4 C L 66 15 111/66 90 09/19/19 23:35 36.7 C 54 L 15 111/71 91 09/19/19 22:10 36.7 C 63 18 106/68 92
--- NOTE | 2019-09-22 15:11 | Discharge Summary ---
Date of Service September 22, 2019 Admission HPI Per Admitting Provider This is a 54-year-old female who presented to the emergency room with a complaint of right upper quadrant pain that began yesterday at 6 AM. The discomfort is localized to the right upper quadrant and occasionally radiates through to her back. She has never had pain like this in the past. There is no generalized abdominal pain. The pain is exacerbated by motion and she could not find anything that she could do to relieve it. It was associated with nausea. She is had multiple episodes of vomiting without hematemesis. Over the last week she has also had some diarrhea. There is no melena or hematochezia. That is unusual for her. She underwent a CT scan of the abdomen and pelvis that demonstrated cholelithiasis with thickening of the gallbladder wall and pericholecystic fluid. There are no urinary symptoms Principal Diagnosis Acute calculous cholecystitis Discharge Data Allergies Allergy/AdvReac Type Severity Reaction Status Date / Time Penicillins Allergy Unknown UNKNOWN Verified 09/19/19 11:59 Consultations 09/19/19 13:10 ED Decision to Admit Stat Procedures Performed Operation Date: 09/19/19 09:10 Actual Procedures p Laparoscopic Cholecystectomy - Pawan Lara MD Ordered Studies 09/19/19 10:54 CT abd pelvis IV con only Stat Hospital Course (1) Cholecystitis, acute with cholelithiasis: Patient was taken to operating room for laparoscopic cholecystectomy from emergency department by Dr. Lara. Patient found to have acute cholecystitis but tolerated procedure well. Given amount of inflammation she was observed overnight for pain control. POD # 1 vitals stable, postop pain minimal, controlled, no n/v, tolerated regular diet. Patient was discharged home on POD # 1 in stable condition. Total Time Total Time Spent Total Time Spent (In Minutes): 15 Total Time Includes: Examination of the Patient, Discharge Planning and Medication Reconciliation Discharge Plan Discharge Items Patient Disposition: Home - Self-Care Reason For Visit: ACUTE CHOLECYSTITIS Discharge Diagnosis: Same Activity: Per Instructions section Non-emergency contact: Surgeon Call non-emergency contact if: your pain is not controlled, your pain is worsening, your pain is concerning for you, you have a fever, your wound has increased redness, your wound has increased drainage and your wound pain has increased Follow-up/Referrals: Pawan Lara MD [Physician] - 06/18/20 1:30 pm (Call office at [phone] to make a follow-up appointment in 2 weeks) Natalia Ewing CRNP [Primary Care Provider] - Diet: Regular Addtl Attending Provider Instructions: Post-Surgical ~Discharge Instructions Activity Recommendations: - lifting limitation: (10 pounds for 2 weeks), - exercise/sex/sports limit: (nonstrenuous for 2 weeks), - driving or machine use limit: (none for 1 week), - Shower/bathe limit: (may shower beginning tonight) Diet: - Resume previous diet SPECIAL CARE INSTRUCTIONS: - May shower tonight. Let water run over area and pat dry. - Leave steri strips on for one week and then remove. - Call the surgeon's office with any questions or concerns - - (ex. temperature higher than 101 degrees F, excessive bleeding or pain). MEDICATIONS: - Resume previous medications unless instructed otherwise by your surgeon. - Ibuprofen 600 mg every 6 hours with food - Percocet 1 every 4 hours, as needed for pain FOLLOW UP VISIT: - If not already scheduled, please call the office to schedule a two week follow-up appointment. Office number Pending Studies at Discharge: Yes (gallbladder pathology, will be reviewed at follow-up visit) Stand-Alone Forms: [facility], Opioid Pain Management, Work/School Release (Inpt), Smoking Cessation Medications and DC Order Prescriptions: New oxycodone-acetaminophen [Percocet] 5-325 mg Tablet 1 tab PO Q4H PRN (Reason: pain) Qty: 3 RF: 0 Continued multivitamin Tablet 1 tab PO QAM RF: 0 amlodipine 5 mg tablet 5 mg PO DAILY RF: 0 aspirin [Aspir-81] 81 mg Tablet,Delayed Release (Dr/Ec) 81 mg PO QAM RF: 0 fluticasone propionate 50 mcg/actuation spray,suspension 1 spray intranasal QAM RF: 0 nicotine 14 mg/24 hr patch 24 hour 1 patch transdermal DAILY PRN (Reason: .) RF: 0 nortriptyline 10 mg capsule 20 mg PO QAM RF: 0 topiramate 100 mg tablet 100 mg PO QAM RF: 0 duloxetine 30 mg capsule,delayed release(DR/EC) 30 mg PO QAM RF: 0 duloxetine 60 mg capsule,delayed release(DR/EC) 60 mg PO QAM RF: 0 Discharge Orders: Discharge Order (Routine); Ordered 09/20/19 Ordered By: Janina Feliz/Other Patient Handouts: DVT, ED ANTI-EMBOLISM STOCKINGS Admission Data Admit Date/Time: 09/19/19 18:13 Attending Provider: Pawan Lara Admit Provider: Pawan Lara Primary Care Provider: Natalia Ewing Other Providers: Pawan Lara Other Interventions: Discharge Summary Assessment (RN) Last Done: 09/20/19 09:21 DC Date/Time DO NOT enter until pt leaves facility: 09/20/19 10:38
== END 2019-09-20 10:38 | disposition home or self-care (01) ==
LOC: ED 10:12 → ASU 14:42 → 3E 14:42